=== PATIENT | male | born 1935 | race Caucasian/White ===

== ENCOUNTER 2017-08-15 00:11 | Observation (INO) | payer MEDICARE ==
[~2017-08-15] VITALS: Ht 172.7 cm; Wt 77.9 kg
[~2017-08-15 00:11] MED LIST: ARICEPT10 MG PO; ASPI81EC86 PO; CENTRUM1 TAB PO; DIOVAN160 M1 PO; LIPITOR 10MG10 MG PO; NORCO 325 MG-51 TAB PO
[2017-08-15 01:01] LABS: COLLECTION METHOD CLEAN CATCH
[2017-08-15 01:03] LABS: BASO % 0.5 % (0.0-2.0); EOS # 0.1 (0.0-0.7); GRAN % 69.1 % (42.2-75.2); HEMATOCRIT 42.9 % (42.0-52.0); HEMOGLOBIN 14.6 g/dl (13.5-18.0); LYMPH # 1.2 (1.2-3.4); LYMPH % 16.3 % (20.0-51.0); MEAN CELL VOLUME 100 fl (80.0-100.0); MEAN CORPUSCULAR HEMOGLOBIN 34 pg (27.0-31.0); MEAN CORPUSCULAR HGB CONC 34 g/dl (33.0-37.0); MEAN PLATELET VOLUME 10.2 fl (7.4-10.4); MONO # 0.9 (0.1-0.6); MONO % 12.8 % (1.7-9.3); PLATELET COUNT 217 K/mm3 (130-400); RED BLOOD COUNT 4.31 M/mm3 (4.20-5.60); WHITE BLOOD COUNT 7.3 K/mm3 (4.8-10.8)
[2017-08-15 01:08] LABS: MUCOUS Present /lpf; PH 5 (5-8); SQUAMOUS EPITHELIAL 0-2 /hpf; URINE APPEARANCE Clear; URINE BACTERIA None Seen /hpf; URINE BILIRUBIN Negative (NEGATIVE); URINE BLOOD Negative (NEGATIVE); URINE COLOR Yellow; URINE GLUCOSE 3+ (NEGATIVE); URINE KETONE Trace (NEGATIVE); URINE LEUKOCYTE ESTERASE Negative (NEGATIVE); URINE PROTEIN(semi-quant) Negative (NEGATIVE); URINE RBC 0-2 /hpf; URINE WBC 0-2 /hpf
[2017-08-15 01:21] LABS: ALANINE AMINOTRANSFERASE 39 U/L (21-72); ALBUMIN 5.1 gm/dL (3.5-5.0); ALKALINE PHOSPHATASE 87 U/L (50-136); ANION GAP 13 mmol/L (7-16); BILIRUBIN,TOTAL 0.7 mg/dL (0.0-1.0); BLOOD UREA NITROGEN 32 mg/dL (9-20); CALCIUM 9.9 mg/dL (8.4-10.2); CARBON DIOXIDE 25 mmol/L (22-30); CHLORIDE 104 mmol/L (98-107); CREATININE, serum 1.18 mg/dL (0.66-1.25); GLUCOSE 127 mg/dL (74-106); POTASSIUM 4.7 mmol/L (3.4-5.0); SODIUM 142 mmol/L (137-145); TOTAL PROTEIN 7.9 gm/dL (6.4-8.2)
[2017-08-15 01:26] LABS: ALCOHOL(ethanol),MEDICAL < 10 mg/dL; C-REACTIVE PROTEIN < 0.5 mg/dL (0.0-0.9)
[2017-08-15] MEDS ORDERED: NAMENDA XR 28MG PO (03:33)
[2017-08-15] MEDS ORDERED: COZAAR 50MG50 MG/TAB PO (03:34)
[2017-08-15] MEDS ORDERED: VISION VITAMINS1 TA1 PO (03:35)
[2017-08-15] MEDS ORDERED: RAZADYNE ER16 MG PO (03:36)
[2017-08-15 04:06] VITALS: BP 126/60; PULSE 75; TEMP 98.5
[2017-08-15 07:46] VITALS: BP 142/67; PULSE 73; TEMP 97.3
[2017-08-15] MEDS ORDERED: SEROQUEL 2525 MG/TAB PO (15:00)
[2017-08-15] MEDS ORDERED: ATIVAN 1MG T1 MG/TAB PO (15:02)
[2017-08-15 15:32] VITALS: BP 142/67; PULSE 73; TEMP 97.3
== END 2017-08-15 17:22 ==
LOC: COL.ER 00:11 → MEDICAL 01:58
PROVIDERS: Emergency Medicine
DX: G30.9 Alzheimer's disease, unspecified (principal); F02.81 Dementia in other diseases classified elsewhere, unspecified severity, with behavioral disturbance; I10 Essential (primary) hypertension; E78.5 Hyperlipidemia, unspecified; C61 Malignant neoplasm of prostate; E11.9 Type 2 diabetes mellitus without complications
CPT/HCPCS: G0378; J1650